=== PATIENT | male | born 1960 | race African-American/Black ===

== ENCOUNTER 2024-09-03 16:24 | Inpatient (IN) | payer MEDICARE, OTHER ==
[~2024-09-03] VITALS: Ht 190.5 cm; Wt 80.7 kg
[2024-09-03] MEDS ORDERED: MAGN400O6 PO (17:16)
[2024-09-03] MEDS ORDERED: HYDR50TA62 PO (17:16)
[2024-09-03] MEDS ORDERED: ASPI81TA31 PO (17:16)
[2024-09-03] MEDS ORDERED: DOCU-141 PO (17:16)
[2024-09-03] MEDS ORDERED: ATOR80TA PO (17:16)
[2024-09-03] MEDS ORDERED: ONDA4TAB5 SL (17:16)
[2024-09-03] MEDS ORDERED: HYDR-894 PO (17:16)
[2024-09-03] MEDS ORDERED: ACET325C7 PO (17:16)
[2024-09-03] MEDS ORDERED: MAG30ORA PO (17:16)
[2024-09-03] MEDS ORDERED: DIPH25CA83 PO (17:16)
[2024-09-03] MEDS ORDERED: HALOPERIDOL LACTATE 5 MG/1 ML VIAL ONE (18:20)
[2024-09-03] MEDS ORDERED: diphenhydrAMINE 50 MG/1 ML VIAL ONE (18:20)
[2024-09-03] MEDS ORDERED: LORAZEPAM 2 MG/1 ML VIAL ONE (18:21)
[2024-09-03] MEDS: diphenhydrAMINE 50 MG/1 ML VIAL IM ONE (18:27)
[2024-09-03] MEDS: LORAZEPAM 2 MG/1 ML VIAL IM ONE (18:27)
[2024-09-03] MEDS: HALOPERIDOL LACTATE 5 MG/1 ML VIAL IM ONE (18:31)
[2024-09-03 20:11] LABS: BASOPHILS % (AUTO) 0.5 % (0.0-2.0); EOSINOPHILS # (AUTO) 0.1 K/uL (0.0-0.7); HEMATOCRIT 36.7 % (36.7-47.1); HEMOGLOBIN 12.1 g/dL (12.5-16.3); LYMPHOCYTES # (AUTO) 0.7 K/uL (0.8-4.8); LYMPHOCYTES % (AUTO) 18.5 % (20.5-51.5); MEAN CORPUSCULAR HEMOGLOBIN 28.1 uug (23.8-33.4); MEAN CORPUSCULAR HGB CONC 33 g/dL (32.5-36.3); MEAN CORPUSCULAR VOLUME 85.3 fL (73.0-96.2); MONOCYTES # (AUTO) 0.6 K/uL (0.1-1.30); MONOCYTES % (AUTO) 16.3 % (0.0-11.0); NEUTROPHILS # (AUTO) 2.5 K/uL (1.8-8.9); NEUTROPHILS % (AUTO) 62.7 % (38.5-71.5); PLATELET COUNT (AUTO) 143 K/uL (152-348); WHITE BLOOD COUNT (AUTO) 3.9 K/uL (3.6-10.2)
[2024-09-03 20:22] LABS: DIFFERENTIAL COMMENT 1
[2024-09-03 20:29] LABS: ETHANOL < 3 MG/DL (0-10)
[2024-09-03 20:32] LABS: ALANINE AMINOTRANSFERASE 93 U/L (16-63); ALBUMIN 3.1 g/dL (3.4-5.0); ALKALINE PHOSPHATASE 148 U/L (50-136); ASPARTATE AMINOTRANSFERASE 100 U/L (15-37); BILIRUBIN,DIRECT 0.1 mg/dL (0.0-0.2); BILIRUBIN,TOTAL 0.5 mg/dL (0.2-1.0); CALCIUM 9.8 mg/dL (8.5-10.1); CARBON DIOXIDE 31 mmol/L (21-32); CHLORIDE 105 mmol/L (98-107); CREATININE 0.9 mg/dL (0.6-1.3); GLUCOSE 101 mg/dL (74-106); POTASSIUM 4.5 mmol/L (3.5-5.1); SODIUM SERUM 139 mmol/L (136-145); TOTAL PROTEIN, SERUM 7.7 g/dL (6.4-8.2); UREA NITROGEN, BLOOD 30 mg/dL (7-18)
[2024-09-03 20:33] LABS: ACETAMINOPHEN < 2.0 ug/mL (10-30)
[2024-09-03 22:12] LABS: BAND % (MANUAL) 7 % (0-10); EOSINOPHILS % (MANUAL) 2 % (0-8); LYMPHOCYTES % (MANUAL) 16 % (20-40); MONOCYTES % (MANUAL) 17 % (2-10); NEUTROPHILS % (MANUAL) 58 % (42-75)
[2024-09-03 22:13] LABS: ANISOCYTOSIS 1+; PLATELET ESTIMATE DECREASED
[2024-09-04] MEDS ORDERED: TEMAZEPAM 7.5 MG CAPSULE PO PRN ×2 (01:00)
[2024-09-04] MEDS ORDERED: CLONAZEPAM 1 MG TABLET PO PRN (01:00)
[2024-09-04] MEDS ORDERED: MAG HYDROX/AL HYDROX/SIMETH 30 ML LIQUID UDC PO PRN (01:00)
[2024-09-04] MEDS: BLOOD SUGAR DIAGNOSTIC 1 EACH STRIP VI ONE (01:16)
[2024-09-04] MEDS ORDERED: OLAN20TA3 PO (02:42)
[2024-09-04] MEDS ORDERED: DIVA250T PO (02:42)
[2024-09-04 08:12] VITALS: BP 147/81; TEMP 98.5; O2SAT 97
[2024-09-04] MEDS ORDERED: HYDR50CA5 PO (08:43)
[2024-09-04] MEDS ORDERED: ACET325T53 PO (08:43)
[2024-09-04] MEDS ORDERED: ATOR40TA PO (08:43)
[2024-09-04] MEDS: DIVALPROEX 250 MG TABLET.DR PO SCH (09:22)
[2024-09-04] MEDS ORDERED: ASPIRIN 81 MG TAB.CHEW PO SCH (13:30)
[2024-09-04] MEDS: ASPIRIN EC 81 MG TABLET.DR PO SCH (17:48)
[2024-09-04 19:59] VITALS: BP 142/78; TEMP 98.1; O2SAT 98
[2024-09-04] MEDS: OLANZAPINE 5 MG TABLET PO SCH (21:11)
[2024-09-04] MEDS: ATORVASTATIN 40 MG TABLET PO SCH (21:11)
[2024-09-04] MEDS: CLONAZEPAM 0.5 MG TABLET PO PRN (21:11)
[2024-09-05 07:50] LABS: ALBUMIN 2.7 g/dL (3.4-5.0); BILIRUBIN,DIRECT 0.1 mg/dL (0.0-0.2); BILIRUBIN,TOTAL 0.5 mg/dL (0.2-1.0); TOTAL PROTEIN, SERUM 7.2 g/dL (6.4-8.2)
[2024-09-05 07:51] VITALS: BP 123/60; TEMP 98; O2SAT 96
[2024-09-05 15:06] VITALS: BP 132/85; TEMP 98; O2SAT 96
[2024-09-05 20:13] VITALS: BP 98/56; TEMP 97.2; O2SAT 99
[2024-09-05 20:30] VITALS: BP 105/69; O2SAT 95
[2024-09-06 07:47] VITALS: BP 121/67; TEMP 98; O2SAT 96
[2024-09-06] MEDS: DIVALPROEX SPRINKLE 125 MG CAP.SPRINK PO SCH (09:37)
[2024-09-06 15:09] VITALS: BP 90/47; TEMP 98; O2SAT 96
[2024-09-06] MEDS: CLONAZEPAM 1 MG TABLET PO PRN (16:54)
[2024-09-06 19:51] VITALS: BP 101/56; TEMP 97.9; O2SAT 96
[2024-09-07 08:12] VITALS: BP 135/90; TEMP 98.1; O2SAT 98
[2024-09-07] MEDS: OLANZAPINE 5 MG TABLET PO SCH ×2 (08:43→20:27)
[2024-09-07] MEDS: GABAPENTIN 300 MG CAPSULE PO SCH (08:44)
[2024-09-07 16:08] VITALS: BP 110/79; TEMP 98.2; O2SAT 96
[2024-09-07 20:00] VITALS: BP 103/70; TEMP 98; O2SAT 98
[2024-09-08 08:10] VITALS: BP 115/74; TEMP 97.9; O2SAT 98
[2024-09-08] MEDS: ENSURE ENLIVE (VAN) 240 ML LIQUID PO SCH (16:29)
[2024-09-08 16:41] VITALS: BP 99/74; TEMP 98.5; O2SAT 98
[2024-09-08 19:34] VITALS: BP 100/70; TEMP 98.7; O2SAT 97
[2024-09-09 07:30] VITALS: BP 154/74; TEMP 98.2; O2SAT 96
[2024-09-09 15:11] VITALS: BP 132/71; TEMP 98; O2SAT 100
[2024-09-09 19:51] VITALS: BP 146/76; TEMP 98.1; O2SAT 98
[2024-09-10 08:06] VITALS: BP 142/77; TEMP 98; O2SAT 96
[2024-09-10 15:22] VITALS: BP 141/99; TEMP 98; O2SAT 98
[2024-09-10] MEDS: ACETAMINOPHEN 325 MG TABLET PO PRN (18:42)
[2024-09-10 21:29] VITALS: BP 139/89; TEMP 98; O2SAT 98
[2024-09-11 08:10] VITALS: BP 115/61; TEMP 98.1; O2SAT 98
[2024-09-11 16:16] VITALS: BP 111/71; TEMP 98.1; O2SAT 99
[2024-09-11 19:47] VITALS: BP 112/68; TEMP 98.1; O2SAT 98
[2024-09-12 08:44] VITALS: BP 113/56; TEMP 98; O2SAT 96
[2024-09-12 15:26] VITALS: BP 146/70; TEMP 98; O2SAT 96
[2024-09-12 19:40] VITALS: BP 154/80; TEMP 98; O2SAT 99
[2024-09-13 07:30] VITALS: BP 122/65; TEMP 97.9; O2SAT 96
[2024-09-13 16:58] VITALS: BP 99/80; TEMP 97.6; O2SAT 95
[2024-09-13] MEDS: MAGNESIUM HYDROXIDE 30 ML LIQUID UDC PO PRN (18:29)
[2024-09-13 19:58] VITALS: BP 107/67; TEMP 97.8; O2SAT 100
[2024-09-13] MEDS: ATORVASTATIN 40 MG TABLET PO SCH (20:28)
[2024-09-14 08:10] VITALS: BP 111/66; TEMP 98.3; O2SAT 96
[2024-09-14] MEDS: VALPROIC ACID 250 MG/5 ML LIQUID UDC PO SCH (09:10)
[2024-09-14 16:39] VITALS: BP 155/83; TEMP 98.5; O2SAT 98
[2024-09-14 20:11] VITALS: BP 136/68; TEMP 98.2; O2SAT 96
[2024-09-15 08:12] VITALS: BP 122/71; TEMP 98; O2SAT 100
== END 2024-09-15 14:15 | DRG 885 ==
LOC: ER 16:24 → GPS 09-04 00:22
PROVIDERS: ADMIT Psychiatry & Neurology Psychiatry; ATTEND Nurse Practitioner Acute Care
DX: F29 Unspecified psychosis not due to a substance or known physiological condition (principal); F03.93 Unspecified dementia, unspecified severity, with mood disturbance; F03.911 Unspecified dementia, unspecified severity, with agitation; E44.0 Moderate protein-calorie malnutrition; E88.09 Other disorders of plasma-protein metabolism, not elsewhere classified; Z86.73 Personal history of transient ischemic attack (TIA), and cerebral infarction without residual deficits; E78.5 Hyperlipidemia, unspecified; Z79.82 Long term (current) use of aspirin; Z79.899 Other long term (current) drug therapy; I48.91 Unspecified atrial fibrillation; R73.03 Prediabetes; D64.9 Anemia, unspecified; R74.01 Elevation of levels of liver transaminase levels; T46.6X5A Adverse effect of antihyperlipidemic and antiarteriosclerotic drugs, initial encounter; Y92.129 Unspecified place in nursing home as the place of occurrence of the external cause; Z68.22 Body mass index [BMI] 22.0-22.9, adult
CPT/HCPCS: 36415; 76705; 80164; 85025; A4606; A4663; G0480; J1200; J1630; J2060; J3490